=== PATIENT | female | born 1960 | race African-American/Black ===

== ENCOUNTER 2023-06-24 07:32 | Emergency (ER) | payer BC, OTHER ==
[~2023-06-24] VITALS: Ht 162.6 cm; Wt 54.4 kg
[2023-06-24] MEDS ORDERED: METF-442 PO (07:46)
[2023-06-24] MEDS ORDERED: POTA10CA43 PO (07:46)
[2023-06-24] MEDS ORDERED: TELM1TAB34 PO (07:46)
[2023-06-24] MEDS ORDERED: LEVE1000 PO (07:47)
[2023-06-24 08:00] VITALS: BP 139/90; O2SAT 97
== END 2023-06-24 08:01 | disposition home or self-care (01) ==
LOC: ER 07:32
DX: Z76.0 Encounter for issue of repeat prescription (principal); Z88.2 Allergy status to sulfonamides; Z79.899 Other long term (current) drug therapy
CPT/HCPCS: A4606; A4663

== ENCOUNTER 2023-10-19 07:23 | Emergency (ER) | payer BC, OTHER ==
[~2023-10-19] VITALS: Ht 162.6 cm; Wt 54.4 kg
[~2023-10-19 07:23] MED LIST: LEVE1000 PO; METF-442 PO; POTA10CA43 PO; TELM1TAB34 PO
[2023-10-19 07:28] VITALS: O2SAT 98
[2023-10-19] MEDS ORDERED: LEVO50TA PO (07:39)
[2023-10-19] MEDS ORDERED: TELM1TAB34 PO (07:41)
[2023-10-19] MEDS ORDERED: METF-442 PO (07:41)
[2023-10-19] MEDS ORDERED: POTA10CA43 PO (07:41)
[2023-10-19] MEDS ORDERED: LEVE1000 PO (07:41)
== END 2023-10-19 07:42 | disposition home or self-care (01) ==
LOC: ER 07:24
DX: Z76.0 Encounter for issue of repeat prescription (principal); E11.9 Type 2 diabetes mellitus without complications; Z79.899 Other long term (current) drug therapy; Z88.2 Allergy status to sulfonamides
CPT/HCPCS: A4606; A4663